=== PATIENT | male | born 1955 | race Two or more races ===

== ENCOUNTER 2022-02-01 12:34 | Emergency (ER) | payer OTHER ==
[~2022-02-01] VITALS: Ht 172.7 cm; Wt 68.0 kg
[2022-02-01 13:56] LABS: Urine Bacteria NONE SEEN /hpf (None Seen); Urine Blood 3+ /uL (Negative); Urine Specific Gravity 1.013 (1.001-1.035); Urine WBC 6 /hpf (0 - 3)
[2022-02-01 16:00] VITALS: BP 138/88
[2022-02-01] MEDS ORDERED: cefTRIAXone W LIDOCAINE 1 GM IM IM ONE (16:15)
[2022-02-01] MEDS ORDERED: TAMSULOSIN HYDROCHLORIDE 0.4 MG CAP PO ONE (16:30)
[2022-02-01] MEDS ORDERED: TAM04C PO (16:33)
[2022-02-01] MEDS ORDERED: NITR-87 PO (16:33)
== END 2022-02-01 17:11 | disposition home or self-care (01) ==
LOC: ER 12:34
DX: R33.9 Retention of urine, unspecified (principal); N39.0 Urinary tract infection, site not specified; N13.30 Unspecified hydronephrosis
CPT/HCPCS: 51702; 71250; 74176; 81001; 96372; 99284; J0696